=== PATIENT | male | born 1995 | race Caucasian/White ===

== ENCOUNTER 2020-09-04 09:02 | Emergency (ER) | payer OTHER ==
[2020-09-04] MEDS ORDERED: LIDOCAINE HCL 1%, 10 MG/ML (20ML VIAL) ONE (09:16)
[2020-09-04 10:04] VITALS: BP 117/65; PULSE 73; TEMP 98; BMI 25.0
== END 2020-09-04 10:06 | disposition home or self-care (01) ==
LOC: FER 09:02
DX: L03.032 Cellulitis of left toe (principal)
CPT/HCPCS: 99282-25

== ENCOUNTER 2021-03-02 11:24 | Emergency (ER) | payer OTHER ==
[2021-03-02 11:50] VITALS: BP 160/73; PULSE 90; TEMP 98.1; BMI 31.6
[2021-03-02] MEDS ORDERED: DIPHTH,PERTUSS(ACELL),TET 0.5 ML DISP.SYRIN IM ONE ×2 (12:02→12:24)
== END 2021-03-02 12:30 | disposition home or self-care (01) ==
LOC: FER 11:24
PROC: 3E0234Z Introduction of Serum, Toxoid and Vaccine into Muscle, Percutaneous Approach (ICD-10-PCS; principal; 2021-03-02)
DX: S51.852A Open bite of left forearm, initial encounter (principal); S51.851A Open bite of right forearm, initial encounter; X83.8XXA Intentional self-harm by other specified means, initial encounter
CPT/HCPCS: 90471; 90715; 99284-25

== ENCOUNTER 2021-03-12 15:49 | Emergency (ER) | payer OTHER ==
[2021-03-12] MEDS ORDERED: BACITRACIN 15 GM TUBE TOPICAL OINTMENT TP ONE (16:11)
[2021-03-12 16:22] VITALS: BP 111/72; PULSE 83; TEMP 98.2; BMI 31.5
== END 2021-03-12 16:30 | disposition home or self-care (01) ==
LOC: FER 15:49 → SUPCPDRO 15:49 → FER 16:30
DX: S51.851A Open bite of right forearm, initial encounter (principal); S51.852A Open bite of left forearm, initial encounter; W50.3XXA Accidental bite by another person, initial encounter; Y92.9 Unspecified place or not applicable
CPT/HCPCS: 99284-25

== ENCOUNTER 2021-03-14 11:24 | Emergency (ER) | payer OTHER ==
[2021-03-14 11:44] VITALS: BP 111/64; PULSE 97; TEMP 97.8; BMI 25.8
== END 2021-03-14 12:10 | disposition home or self-care (01) ==
LOC: FER 11:24
DX: S50.871A Other superficial bite of right forearm, initial encounter (principal); W50.3XXA Accidental bite by another person, initial encounter
CPT/HCPCS: 99281-25

== ENCOUNTER 2021-03-14 18:48 | Emergency (ER) | payer OTHER ==
[2021-03-14 19:17] VITALS: BP 110/72; PULSE 98; TEMP 98; BMI 25.8
== END 2021-03-14 19:45 | disposition home or self-care (01) ==
LOC: FER 18:48
DX: S50.871A Other superficial bite of right forearm, initial encounter (principal); X83.8XXA Intentional self-harm by other specified means, initial encounter
CPT/HCPCS: 99281-25

== ENCOUNTER 2021-04-07 09:55 | Emergency (ER) | payer OTHER ==
[2021-04-07 10:06] VITALS: BP 103/78; PULSE 77; TEMP 98.9; BMI 25.7
== END 2021-04-07 10:30 | disposition home or self-care (01) ==
LOC: FER 09:55
DX: S09.90XA Unspecified injury of head, initial encounter (principal); S00.33XA Contusion of nose, initial encounter
CPT/HCPCS: 99283-25

== ENCOUNTER 2021-05-01 15:05 | Emergency (ER) | payer OTHER ==
[2021-05-01] MEDS ORDERED: PRESCRIPTION PAD 1 EACH EACH NR ONE (15:23)
[2021-05-01 15:32] VITALS: BP 123/79; PULSE 98; TEMP 98.4; BMI 25.7
== END 2021-05-01 16:45 | disposition home or self-care (01) ==
LOC: FER 15:05
DX: S51.851A Open bite of right forearm, initial encounter (principal); S51.852A Open bite of left forearm, initial encounter; W50.3XXA Accidental bite by another person, initial encounter; Z76.0 Encounter for issue of repeat prescription
CPT/HCPCS: 99282-25

== ENCOUNTER 2021-06-30 15:23 | Emergency (ER) | payer OTHER ==
[2021-06-30 16:00] VITALS: BP 134/81; PULSE 82; TEMP 98.4; BMI 22.1
[2021-06-30] MEDS ORDERED: AMOX TR/POT CLAV 875MG/125MG TABLETS (FP) PO ONE (16:15)
[2021-06-30] MEDS ORDERED: AMOX TR/POT CLAV 875MG/125MG TABLETS (FP) ONE (16:16)
== END 2021-06-30 16:37 | disposition home or self-care (01) ==
LOC: FER 15:23
DX: Z48.00 Encounter for change or removal of nonsurgical wound dressing (principal)
CPT/HCPCS: 99281-25

== ENCOUNTER 2021-07-21 09:03 | Emergency (ER) | payer OTHER ==
[2021-07-21 09:39] VITALS: BP 127/77; PULSE 94; TEMP 97.8; BMI 21.4
== END 2021-07-21 09:47 | disposition home or self-care (01) ==
LOC: FER 09:03
DX: S91.101A Unspecified open wound of right great toe without damage to nail, initial encounter (principal); L60.0 Ingrowing nail; Y99.9 Unspecified external cause status
CPT/HCPCS: 99281-25

== ENCOUNTER 2023-08-08 15:58 | Emergency (ER) | payer OTHER ==
[2023-08-08 16:06] VITALS: BMI 21.9
[2023-08-08 16:11] VITALS: BP 119/76; PULSE 90; RESP 16; TEMP 98
== END 2023-08-08 18:40 | disposition home or self-care (01) ==
LOC: FER 15:58
DX: Z04.3 Encounter for examination and observation following other accident (principal); F98.9 Unspecified behavioral and emotional disorders with onset usually occurring in childhood and adolescence; W50.3XXA Accidental bite by another person, initial encounter
CPT/HCPCS: 99282-25